=== PATIENT | male | born 1980 | race Caucasian/White ===

== ENCOUNTER 2018-06-13 21:03 | Emergency (ER) | payer MEDICAID, OTHER ==
[~2018-06-13] VITALS: Ht 172.7 cm; Wt 84.0 kg
[2018-06-13 21:06] VITALS: Ht 172.7 cm; Wt 84.0 kg
--- NOTE | 2018-06-13 22:22 | ERD ---
ER Documentation Chief Complaint Chief Complaint L ear pain. no fever/cough/other symptoms HPI This is a 37-year-old who has decreased hearing in the left ear. No pain. No ringing in his ear. No fever. No recent illness. This is been going on for about a week. ROS All systems reviewed and are negative except as per history of present illness. Allergies Allergies: Coded Allergies: No Known Drug Allergies (Verified Allergy, Unknown, 06/13/18) PMhx/Soc History of Surgery: Yes (left lower leg surgery) Hx Alcohol Use: Yes (occassional) Hx Substance Use: No Hx Tobacco Use: No Smoking Status: Never smoker FmHx Family History: No diabetes Physical Exam Vitals Vital Signs Date Temp Pulse Resp B/P (MAP) Pulse Ox O2 O2 Flow FiO2 Time Delivery Rate 06/13/18 97.2 81 16 135/83 98 21:06 (100) Physical Exam INITIAL VITAL SIGNS: Reviewed by me GENERAL: Awake, alert and oriented x 4, well appearing, nontoxic, speaking in full sentences. No acute distress HEAD: Atraumatic NECK: Supple. No masses. Full range of motion. No meningismus. No midline tenderness. EYES: EOMI. PERRL. EAR: Cerumen impaction left ear THROAT: No tonilar erythema or edema. No exudates. Uvula midline. No kissing tonsils. RESPIRATORY: Clear to auscultation bilaterally. Symmetric chest wall rise. No wheezing or rales. No accessory muscle use. CV: Regular rate and rhythm. No murmurs, rubs, or gallops. Procedures/MDM Patient has decreased hearing in the left ear secondary to cerumen impaction. Lavage was performed. Patient counseled regarding my diagnostic impression and care plan. Prior to discharge all questions answered. Pt agrees with treatment plan and understands strict return precautions. Pt is instructed to follow up with primary care provider within 24-48 hours. Precautionary instructions provided including instructions to return to the ER if not improving or for any worsening or changing symptoms or concerns. Departure Diagnosis: Primary Impression: Cerumen impaction Condition: Stable Patient Instructions: Cerumen Impaction, Home Care Additional Instructions: Llame al doctor LOGANANA y diana angela KAREN PARA DENTRO DE 1-2 DUBOSE.Dgale a la secretaria que nosotros le instruimos hacer esta karen.Avise o llame si morales condicin se empeora antes de la karen. Regresa aqui si peor o no mejor. RUFINO ROCHA PA-C Jun 13, 2018 22:22
[2018-06-13 23:10] VITALS: BP 131/84; PULSE 100; RESP 16
== END 2018-06-13 23:11 | disposition home or self-care (01) ==
LOC: FTE 21:03
DX: H61.22 Impacted cerumen, left ear (principal)
CPT/HCPCS: 69209; Z7502